=== PATIENT | female | born 1990 | race Caucasian/White ===

== ENCOUNTER 2020-07-29 13:58 | Emergency (ER) | payer OTHER, SELFPAY ==
[~2020-07-29] VITALS: Ht 157.5 cm; Wt 40.8 kg
[~2020-07-29 13:58] MED LIST: PREN-385 PO
[2020-07-29 14:05] VITALS: BP 94/32
[2020-07-29 14:28] LABS: BASOPHILS % (AUTO) 1.1 % (0.0-2.0); EOSINOPHILS % (AUTO) 0.2 % (0.0-4.0); HEMATOCRIT 37.6 % (36-48); HEMOGLOBIN 12.2 g/dL (12.0-16.0); LYMPHOCYTES # (AUTO) 0.7 K/uL (2.5-16.5); LYMPHOCYTES % (AUTO) 16.5 % (20.5-51.1); MEAN CORPUSCULAR HEMOGLOBIN 24 pg (27-31); MEAN CORPUSCULAR HGB CONC 33 g/dL (33-37); MEAN CORPUSCULAR VOLUME 73.7 fL (80-94); MONOCYTES # (AUTO) 0.2 K/uL (0.8-1.0); MONOCYTES % (AUTO) 5.4 % (1.7-9.3); NEUTROPHILS # (AUTO) 3.5 K/uL (1.8-7.7); NEUTROPHILS % (AUTO) 76.8 % (42.2-75.2); PLATELET COUNT (AUTO) 366 K/uL (140-450); RED CELL DISTRIBUTION WIDTH 17.4 % (11.6-13.7); WHITE BLOOD COUNT (AUTO) 4.5 K/uL (4.8-10.8)
[2020-07-29] MEDS: MORPHINE SULFATE 4 MG/ML SYR IVP ONE ×2 (14:34→15:53)
[2020-07-29] MEDS: NACL 0.9% 1,000 ML IV ONE (14:34)
[2020-07-29] MEDS: ONDANSETRON 4 MG/2 ML VIAL IVP ONE (14:34)
[2020-07-29 14:42] LABS: ALBUMIN 4.8 g/dL (3.4-5.0); ANION GAP 28.5 (8-16); CARBON DIOXIDE 14.7 mmol/L (21-32); CREATININE 0.6 mg/dL (0.6-1.3); POTASSIUM 3.2 mmol/L (3.5-5.1); TOTAL BILIRUBIN 1.1 mg/dL (0.0-1.0)
[2020-07-29 16:28] VITALS: BP 131/85
== END 2020-07-29 16:28 | disposition home or self-care (01) ==
LOC: MED 13:58
DX: R10.9 Unspecified abdominal pain (principal); R11.2 Nausea with vomiting, unspecified; Z91.012 Allergy to eggs; Z90.49 Acquired absence of other specified parts of digestive tract; Z98.890 Other specified postprocedural states; Z79.899 Other long term (current) drug therapy
CPT/HCPCS: 36415; 74176; 80053; 81002; 81025; 83690; 85025; 96361; 96374; 96375; 96376; 99284; J2270; J2405; J7030

== ENCOUNTER 2020-07-30 05:54 | Day surgery (SDC) | payer OTHER, SELFPAY ==
[~2020-07-30] VITALS: Ht 149.9 cm; Wt 40.4 kg
[2020-07-30] MEDS ORDERED: fentaNYL citrate 0.05 MG/ML VIAL ONE (07:22)
[2020-07-30] MEDS ORDERED: MIDAZOLAM 2 MG/2 ML VIAL ONE (07:22)
[2020-07-30] MEDS ORDERED: MIDAZOLAM 5 MG/5 ML VIAL ONE (07:22)
[2020-07-30] MEDS ORDERED: MIDAZOLAM 2 MG/2 ML VIAL IVP ONE (08:10)
[2020-07-30] MEDS ORDERED: MIDAZOLAM 5 MG/5 ML VIAL IV ONE (08:15)
== END 2020-07-30 08:40 | disposition home or self-care (01) ==
LOC: MOR 05:54 → MMU 05:56 → MOR 08:40
PROVIDERS: ATTEND Internal Medicine Gastroenterology
DX: R10.13 Epigastric pain (principal); R11.2 Nausea with vomiting, unspecified; Z20.828 Contact with and (suspected) exposure to other viral communicable diseases
CPT/HCPCS: 43235; 81025; J2250; J3010; U0003

== ENCOUNTER 2020-07-30 10:43 | Emergency (ER) | payer OTHER, SELFPAY ==
[~2020-07-30] VITALS: Ht 149.9 cm; Wt 40.4 kg
[2020-07-30 10:45] VITALS: BP 146/118
--- NOTE | 2020-07-30 10:52 | NUR ---
Patient transferred to bed 2 via wheelchair by triage nurse.
[2020-07-30] MEDS ORDERED: DEXT 5% / NACL 0.9% 500 ML IV ONE (11:00)
[2020-07-30] MEDS ORDERED: NACL 0.9% 1,000 ML IV ONE (11:00)
--- NOTE | 2020-07-30 11:00 | NUR ---
29 YEAR OLD FEMALE COMPLAINS OF LOWER ABDOMINAL PAIN X 1 MONTH, PT STATES IT HAS BEEN WORSE THESE PAST 3 DAYS. PT COMPLAINS OF NAUSEA, VOMITTING X 2 DAYS BUT CURRENTLY WITHOUT NAUSEA. PT STATES SHE HAD AN EGD DONE TODAY BUT DOES NOT REMEMBER EVENT. PT AOX4, BREATHING EVEN AND UNLABORED, SKIN WARM AND DRY. BED IN LOWEST POSITION, LOCKED, BED RAIL UPX1. PMH - DENIES ALLERGIES - NKA
[2020-07-30 11:24] LABS: BASOPHILS # (AUTO) 0.1 K/uL (0.00-0.22); BASOPHILS % (AUTO) 1.4 % (0.0-2.0); EOSINOPHILS % (AUTO) 0.1 % (0.0-4.0); HEMOGLOBIN 12.8 g/dL (12.0-16.0); LYMPHOCYTES # (AUTO) 0.7 K/uL (2.5-16.5); LYMPHOCYTES % (AUTO) 17.2 % (20.5-51.1); MEAN CORPUSCULAR HEMOGLOBIN 24 pg (27-31); MEAN CORPUSCULAR HGB CONC 33 g/dL (33-37); MEAN CORPUSCULAR VOLUME 74.4 fL (80-94); MONOCYTES # (AUTO) 0.1 K/uL (0.8-1.0); NEUTROPHILS # (AUTO) 3.4 K/uL (1.8-7.7); NEUTROPHILS % (AUTO) 78.3 % (42.2-75.2); PLATELET COUNT (AUTO) 351 K/uL (140-450); RED BLOOD CELL COUNT(AUTO) 5.25 MIL/uL (4.20-5.40); RED CELL DISTRIBUTION WIDTH 17.3 % (11.6-13.7); WHITE BLOOD COUNT (AUTO) 4.3 K/uL (4.8-10.8)
[2020-07-30] MEDS ORDERED: HALOPERIDOL IM 5 MG/ML VIAL IM ONE (11:25)
[2020-07-30 11:47] LABS: SALICYLATE < 2.8 mg/dL (2.8-20.0)
[2020-07-30 11:51] LABS: BILIRUBIN,DIRECT 0.2 mg/dL (0.0-0.3); TOTAL BILIRUBIN 0.9 mg/dL (0.0-1.0)
[2020-07-30 11:57] LABS: ANION GAP 26.3 (8-16); CREATININE 0.6 mg/dL (0.6-1.3); POTASSIUM 3.3 mmol/L (3.5-5.1)
[2020-07-30 12:05] LABS: APPEARANCE,URINE CLEAR (CLEAR); BILIRUBIN,URINE NEGATIVE (NEGATIVE); BLOOD, URINE NEGATIVE (NEGATIVE); COLOR,URINE YELLOW (YELLOW); LEUKOCYTE ESTERASE ,URINE NEGATIVE (NEGATIVE); NITRITE, URINE NEGATIVE (NEGATIVE); UGLUCOSE NEGATIVE (NEGATIVE)
--- NOTE | 2020-07-30 12:30 | NUR ---
Patient returned from CT scan and placed back into bed 2.
--- NOTE | 2020-07-30 12:31 | NUR ---
Patient returned from CT scan.
[2020-07-30 12:33] LABS: BARBITURATE, URINE NEGATIVE ng/ml (NEG <=200); BENZODIAZEPINE, URINE NEGATIVE ng/mL (NEG <=200); CANNABINOID, URINE POSITIVE ng/mL (NEG <=50); COCAINE, URINE NEGATIVE ng/mL (NEG <=300); OPIATE, URINE POSITIVE ng/mL (NEG <=2000); PHENCYCLIDINE SCREEN,URINE NEGATIVE ng/mL (NEG <=25)
--- NOTE | 2020-07-30 12:45 | NUR ---
PT ALERT AND AWAKE, BREATHING EVEN AND UNLABORED. NO DISTRESS NOTED.
--- NOTE | 2020-07-30 13:56 | NUR ---
PT ALERT AND AWAKE, BREATHING EVEN AND UNLABORED. NO DISTRESS NOTED. PT STATES FEELS BETTER
--- NOTE | 2020-07-30 14:55 | NUR ---
Patient discharged with v/s stable. Written and verbal after care instructions about abdominal pain (nonspecific) given and explained. Patient alert, oriented and verbalized understanding of instructions. Ambulatory with steady gait. All questions addressed prior to discharge. ID band removed. Patient advised to follow up with PMD. Rx of zofran given. Patient educated on indication of medication including possible reaction and side effects. Opportunity to ask questions provided and answered.
[2020-07-30 15:11] VITALS: BP 102/63
== END 2020-07-30 14:55 | disposition home or self-care (01) ==
LOC: MED 10:43
DX: R10.9 Unspecified abdominal pain (principal); E86.0 Dehydration; R11.2 Nausea with vomiting, unspecified; Z79.899 Other long term (current) drug therapy
CPT/HCPCS: 36415; 74177; 80048; 80076; 80305; 81003; 81025; 83605; 83690; 85025; 96365; 96366; 96372; 99285; G0480; G0482; J1630; Q9967; J7030; J7060

== ENCOUNTER 2020-08-06 12:43 | Emergency (ER) | payer OTHER ==
[~2020-08-06] VITALS: Ht 149.9 cm; Wt 42.9 kg
[2020-08-06 12:58] VITALS: BP 102/47
--- NOTE | 2020-08-06 12:58 | NUR ---
Pt taken to bed 6 via w/c.
--- NOTE | 2020-08-06 13:10 | NUR ---
PATIENT PRESENTS TO ED WITH C/O ABDOMINAL PAIN . SKIN IS PINK/WARM/DRY; AAOX4 WITH EVEN AND STEADY GAIT; LUNGS CLEAR BL; HR EVEN AND REGULAR; PT DENIES ANY FEVER, CP, SOB, OR COUGH AT THIS TIME; PATIENT STATES PAIN OF 0/10 AT THIS TIME; VSS; PATIENT POSITIONED FOR COMFORT; HOB ELEVATED; BEDRAILS UP X2; BED DOWN. ER MD MADE AWARE OF PT STATUS.
--- NOTE | 2020-08-06 13:58 | NUR ---
Patient being evaluated by Dr. Loera at bedside.
[2020-08-06] MEDS ORDERED: SIMETHICONE 40 MG/0.6 ML PO ONE (14:15)
[2020-08-06] MEDS ORDERED: ONDANSETRON 4 MG ODT PO ONE (14:15)
[2020-08-06] MEDS ORDERED: DICYCLOMINE 10 MG CAP PO STA (14:15)
--- NOTE | 2020-08-06 14:30 | NUR ---
pt meds given per md orders
[2020-08-06 15:47] VITALS: BP 102/47
--- NOTE | 2020-08-06 15:47 | NUR ---
Patient discharged with v/s stable. Written and verbal after care instructions given and explained. Patient alert, oriented and verbalized understanding of instructions. Ambulatory with steady gait. All questions addressed prior to discharge. ID band removed. Patient advised to follow up with PMD. Rx of DICYCLOMINE HYDROCHLORIDE given. Patient educated on indication of medication including possible reaction and side effects. Opportunity to ask questions provided and answered.
== END 2020-08-06 15:47 | disposition home or self-care (01) ==
LOC: MED 12:43
DX: R10.9 Unspecified abdominal pain (principal); Z79.899 Other long term (current) drug therapy; Z90.49 Acquired absence of other specified parts of digestive tract
CPT/HCPCS: 99284; Q0162

== ENCOUNTER 2020-10-27 04:55 | Emergency (ER) | payer OTHER ==
[~2020-10-27] VITALS: Ht 149.9 cm; Wt 43.5 kg
[2020-10-27 05:04] VITALS: BP 123/88
[2020-10-27 06:10] VITALS: BP 125/74
== END 2020-10-27 06:10 | disposition home or self-care (01) ==
LOC: MED 04:55
DX: R10.9 Unspecified abdominal pain (principal); R11.2 Nausea with vomiting, unspecified; Z90.49 Acquired absence of other specified parts of digestive tract; Z79.899 Other long term (current) drug therapy
CPT/HCPCS: 99282

== ENCOUNTER 2020-10-27 20:30 | Emergency (ER) | payer OTHER ==
[~2020-10-27] VITALS: Ht 149.9 cm; Wt 43.5 kg
[2020-10-27 20:53] VITALS: BP 147/95
--- NOTE | 2020-10-27 20:56 | NUR ---
PATIENT EVALUATED IN TRIAGE BY ERMD.
--- NOTE | 2020-10-27 20:59 | NUR ---
PT TAKEN TO BED 6
[2020-10-27] MEDS ORDERED: NACL 0.9% 1,000 ML IV ONE (21:00)
[2020-10-27] MEDS ORDERED: PROMETHAZINE 25 MG/ML VIAL IM ONE (21:00)
[2020-10-27] MEDS ORDERED: LIDOCAINE VISCOUS 2% 20 ML UDC PO ONE (21:00)
[2020-10-27] MEDS ORDERED: DICYCLOMINE 10 MG CAP PO ONE (21:00)
[2020-10-27] MEDS ORDERED: HALOPERIDOL IM 5 MG/ML VIAL IM ONE (21:00)
--- NOTE | 2020-10-27 21:20 | NUR ---
IV ESTABLISHED, LABS DRAWN AND GIVEN TO URBAN PLANNER
[2020-10-27 21:51] LABS: BASOPHILS # (AUTO) 0.1 K/uL (0.00-0.22); EOSINOPHILS % (AUTO) 0.4 % (0.0-4.0); HEMATOCRIT 33.4 % (36-48); HEMOGLOBIN 10.6 g/dL (12.0-16.0); LYMPHOCYTES # (AUTO) 1.4 K/uL (2.5-16.5); LYMPHOCYTES % (AUTO) 17.9 % (20.5-51.1); MEAN CORPUSCULAR HEMOGLOBIN 22 pg (27-31); MEAN CORPUSCULAR HGB CONC 32 g/dL (33-37); MEAN CORPUSCULAR VOLUME 69.1 fL (80-94); MONOCYTES # (AUTO) 0.7 K/uL (0.8-1.0); MONOCYTES % (AUTO) 9.1 % (1.7-9.3); NEUTROPHILS # (AUTO) 5.5 K/uL (1.8-7.7); NEUTROPHILS % (AUTO) 71.6 % (42.2-75.2); PLATELET COUNT (AUTO) 310 K/uL (140-450); RED BLOOD CELL COUNT(AUTO) 4.83 MIL/uL (4.20-5.40); WHITE BLOOD COUNT (AUTO) 7.7 K/uL (4.8-10.8)
[2020-10-27 22:04] LABS: ALBUMIN 4.7 g/dL (3.4-5.0); ANION GAP 17.2 (8-16); CARBON DIOXIDE 21.8 mmol/L (21-32); CREATININE 0.6 mg/dL (0.6-1.3); TOTAL BILIRUBIN 1.4 mg/dL (0.0-1.0)
--- NOTE | 2020-10-27 22:05 | NUR ---
PT COMING IN TONIGHT WITH C/O DIFFUSE ABD PAIN WITH N/V/D X 2 DAYS, PT WAS SEEN EARLIER TODAY AND YESTERDAY AT [facility] FOR SAY ISSUE. PT STATES NOTHING IS HELPING HER. PT IS MOANING LOUDLY AND GRABBING HER ABD. PT SAYS SHE HASN'T BEEN ABLE TO EAT X 2-3 DAYS. ABD TENDER UPON PALPATION, AND PT CRIES OUT WITH PALPATION. BED IN LOWEST POSITION AND SIDERAIL UP X 1. NKA HX - CHRONIC ABD PAIN
--- NOTE | 2020-10-27 22:07 | NUR ---
PT ADVISED WE NEED A URINE SAMPLE.
--- NOTE | 2020-10-27 22:19 | NUR ---
PT WAS SLEEPING UPON ENTERING HER ROOM, ASKED IF I COULD ASSIT HER TO RESTROOM FOR UA, STATES SHE STILL DOESN'T NEED TO GO. PT STATES PAIN IS 1/10 NOW. WILL CONTINUE TO MONITOR
--- NOTE | 2020-10-27 23:00 | NUR ---
PT SLEEPING, RESPIRATIONS REGULAR EVEN AND UNLABORED. WILL CONTINUE TO MONITOR
[2020-10-27 23:41] VITALS: BP 130/91
--- NOTE | 2020-10-27 23:42 | NUR ---
PT WAS NEVER ABLE TO PROVISE UA PRIOR TO D/C
--- NOTE | 2020-10-27 23:42 | NUR ---
Patient discharged with v/s stable. Written and verbal after care instructions given and explained. Patient alert, oriented and verbalized understanding of instructions. Ambulatory with steady gait. All questions addressed prior to discharge. ID band removed. Patient advised to follow up with PMD. Rx of ZOFRAN AND PEPCID given. Patient educated on indication of medication including possible reaction and side effects. Opportunity to ask questions provided and answered.
== END 2020-10-27 23:42 | disposition home or self-care (01) ==
LOC: MED 20:30
DX: R10.9 Unspecified abdominal pain (principal); G89.29 Other chronic pain; R11.2 Nausea with vomiting, unspecified; Z90.49 Acquired absence of other specified parts of digestive tract; Z79.899 Other long term (current) drug therapy
CPT/HCPCS: 36415; 80053; 83690; 85025; 96360; 96361; 96372; 99284; J1630; J2550; J7030

== ENCOUNTER 2020-11-10 11:50 | Emergency (ER) | payer OTHER ==
[~2020-11-10] VITALS: Ht 149.9 cm; Wt 43.5 kg
--- NOTE | 2020-11-10 11:55 | NUR ---
Patient wheelchair assisted to bed 09
[2020-11-10 11:58] VITALS: BP 133/77
[2020-11-10] MEDS ORDERED: HALOPERIDOL IM 5 MG/ML VIAL IVP ONE (12:10)
[2020-11-10] MEDS ORDERED: NACL 0.9% 1,000 ML IV ONE (12:10)
[2020-11-10 12:30] LABS: BASOPHILS % (AUTO) 0.4 % (0.0-2.0); EOSINOPHILS % (AUTO) 0.6 % (0.0-4.0); HEMATOCRIT 31.5 % (36-48); LYMPHOCYTES # (AUTO) 0.8 K/uL (2.5-16.5); LYMPHOCYTES % (AUTO) 14.6 % (20.5-51.1); MEAN CORPUSCULAR HEMOGLOBIN 22 pg (27-31); MEAN CORPUSCULAR HGB CONC 32 g/dL (33-37); MEAN CORPUSCULAR VOLUME 69.1 fL (80-94); MONOCYTES # (AUTO) 0.3 K/uL (0.8-1.0); MONOCYTES % (AUTO) 5.3 % (1.7-9.3); NEUTROPHILS # (AUTO) 4.5 K/uL (1.8-7.7); NEUTROPHILS % (AUTO) 79.1 % (42.2-75.2); PLATELET COUNT (AUTO) 373 K/uL (140-450); RED BLOOD CELL COUNT(AUTO) 4.56 MIL/uL (4.20-5.40); RED CELL DISTRIBUTION WIDTH 17.7 % (11.6-13.7); WHITE BLOOD COUNT (AUTO) 5.7 K/uL (4.8-10.8)
[2020-11-10 12:33] LABS: BILIRUBIN,URINE NEGATIVE (NEGATIVE); BLOOD, URINE NEGATIVE (NEGATIVE); COLOR,URINE YELLOW (YELLOW); LEUKOCYTE ESTERASE ,URINE NEGATIVE (NEGATIVE); NITRITE, URINE NEGATIVE (NEGATIVE); PH,URINE 7.5 (5.0-9.0); UGLUCOSE NEGATIVE (NEGATIVE)
[2020-11-10 12:48] LABS: BARBITURATE, URINE NEGATIVE ng/ml (NEG <=200); BENZODIAZEPINE, URINE NEGATIVE ng/mL (NEG <=200); CANNABINOID, URINE POSITIVE ng/mL (NEG <=50); COCAINE, URINE NEGATIVE ng/mL (NEG <=300); OPIATE, URINE NEGATIVE ng/mL (NEG <=2000); PHENCYCLIDINE SCREEN,URINE NEGATIVE ng/mL (NEG <=25)
[2020-11-10 12:50] LABS: ALBUMIN 4.5 g/dL (3.4-5.0); BILIRUBIN,DIRECT 0.1 mg/dL (0.0-0.3); TOTAL BILIRUBIN 0.7 mg/dL (0.0-1.0)
[2020-11-10 13:00] LABS: APPEARANCE,URINE CLEAR (CLEAR)
[2020-11-10 13:07] LABS: RBC,URINE 0-5 /HPF (0-5); WBC,URINE 0-5 /HPF (0-5)
[2020-11-10 13:32] VITALS: BP 113/77
--- NOTE | 2020-11-10 13:33 | NUR ---
Patient does not wish to proceed with medical care recommended by DR MIKE. Patient given information related to possible complications, up to and including , which could occur as a result of leaving hospital at this time. Patient verbalizes understanding of risks involved leaving against medical advice. Patient has signed AMA form.
[2020-11-10 13:35] LABS: ANION GAP 17.6 (8-16); CARBON DIOXIDE 19.8 mmol/L (21-32); CREATININE 0.7 mg/dL (0.6-1.3); POTASSIUM 3.4 mmol/L (3.5-5.1)
--- NOTE | 2020-11-11 20:48 | NUR ---
LATE ENTRY--- 0.9% NS BOLUS DISCONTINUED AT 1330
== END 2020-11-10 13:27 | disposition left against medical advice (07) ==
LOC: MED 11:50
DX: R10.84 Generalized abdominal pain (principal); R11.2 Nausea with vomiting, unspecified; F12.20 Cannabis dependence, uncomplicated; F12.90 Cannabis use, unspecified, uncomplicated
CPT/HCPCS: 36415; 80048; 80076; 80305; 81001; 81025; 83690; 85025; 96360; 96372; 99283; J1630; J7030

== ENCOUNTER 2020-11-15 15:52 | Emergency (ER) | payer OTHER ==
[~2020-11-15] VITALS: Ht 149.9 cm; Wt 44.0 kg
[2020-11-15 15:53] VITALS: BP 125/76
[2020-11-15] MEDS ORDERED: DICYCLOMINE HCL LIQUID 20 MG, ALUMINUM HYD/MAG/SIMETHICONE 30 ML, LIDOCAINE VISCOUS 2% ... PO ONE ×3 (16:10)
[2020-11-15] MEDS ORDERED: diphenhydrAMINE 50 MG/ML VIAL IVP STA (16:10)
[2020-11-15] MEDS ORDERED: HALOPERIDOL IM 5 MG/ML VIAL IM ONE (16:10)
--- NOTE | 2020-11-15 16:11 | NUR ---
30 YEAR OLD FEMALE COMPLAINS OF ABDOMINAL PAIN X THIS MORNING. PER PATIENT, SHE FELT PAIN DEVELOP AFTER CONSUMING CEVICHE FROM [facility] (HAS PREVIOUSLY ORDERED CEVICHE FROM THIS SAME RESTAURANT; NO ISSUES). PAIN 10/10, CONTINUOUS, DULL, LOCAL. PATIENT VOMITING AT BEDSIDE, CLEAR WASTE IN EMESIS BAG. PATIENT VERBALIZES PRESENCE OF NAUSEA. DENIES DIARRHEA. NORMOACTIVE BOWEL SOUNDS PRESENT THROUGHOUT. ABDOMINAL TENDERNESS NOTED UPON TOUCH. AO4, SKIN WARM AND DRY, BREATHING EVEN AND UNLABORED. BED IN LOWEST POSITION, LOCKED, X2 SIDERAILS UP. PMH - 2 C-SECTIONS, CHOLECYSTECTOMY NKA
[2020-11-15] MEDS ORDERED: LIDOCAINE VISCOUS 2% 20 ML UDC ONE (16:14)
[2020-11-15] MEDS ORDERED: ALUMINUM HYD/MAG/SIMETHICONE 30 ML UDC ONE (16:15)
[2020-11-15] MEDS ORDERED: DICYCLOMINE HCL LIQUID 10 MG/5 ML UDC ONE (16:15)
[2020-11-15 16:23] LABS: BASOPHILS # (AUTO) 0.1 K/uL (0.00-0.22); BASOPHILS % (AUTO) 0.5 % (0.0-2.0); EOSINOPHILS % (AUTO) 0.2 % (0.0-4.0); HEMATOCRIT 35.9 % (36-48); HEMOGLOBIN 11.3 g/dL (12.0-16.0); LYMPHOCYTES # (AUTO) 1.4 K/uL (2.5-16.5); LYMPHOCYTES % (AUTO) 12.4 % (20.5-51.1); MEAN CORPUSCULAR HEMOGLOBIN 21 pg (27-31); MEAN CORPUSCULAR HGB CONC 31 g/dL (33-37); MEAN CORPUSCULAR VOLUME 68.2 fL (80-94); MONOCYTES # (AUTO) 0.5 K/uL (0.8-1.0); MONOCYTES % (AUTO) 4.3 % (1.7-9.3); NEUTROPHILS # (AUTO) 9.3 K/uL (1.8-7.7); NEUTROPHILS % (AUTO) 82.6 % (42.2-75.2); PLATELET COUNT (AUTO) 464 K/uL (140-450); RED BLOOD CELL COUNT(AUTO) 5.27 MIL/uL (4.20-5.40); WHITE BLOOD COUNT (AUTO) 11.3 K/uL (4.8-10.8)
--- NOTE | 2020-11-15 16:30 | NUR ---
PT CALM, IN BED. NO DISTRESS NOTED.
[2020-11-15 16:40] LABS: ANION GAP 19.3 (8-16); CARBON DIOXIDE 20.5 mmol/L (21-32); CREATININE 0.8 mg/dL (0.6-1.3); POTASSIUM 3.8 mmol/L (3.5-5.1); TOTAL BILIRUBIN 0.9 mg/dL (0.0-1.0)
--- NOTE | 2020-11-15 17:03 | NUR ---
Dr Solis at bedside examining patient
--- NOTE | 2020-11-15 17:20 | NUR ---
PT CALM, IN BED. NO DISTRESS NOTED.
[2020-11-15 17:25] VITALS: BP 125/76
--- NOTE | 2020-11-15 17:25 | NUR ---
Patient discharged with v/s stable. Written and verbal after care instructions ABOUT NAUSEA AND VOMITING given and explained. Patient alert, oriented and verbalized understanding of instructions. Ambulatory with steady gait. All questions addressed prior to discharge. ID band removed. Patient advised to follow up with PMD. Rx of REGLAN AND CAPSAICIN given. Patient educated on indication of medication including possible reaction and side effects. Opportunity to ask questions provided and answered.
== END 2020-11-15 17:25 | disposition home or self-care (01) ==
LOC: MED 15:52
DX: R11.10 Vomiting, unspecified (principal); G89.29 Other chronic pain; R10.9 Unspecified abdominal pain; Z90.49 Acquired absence of other specified parts of digestive tract
CPT/HCPCS: 36415; 80053; 83690; 84702; 85025; 96374; 96375; 99284; J1200; J1630

== ENCOUNTER 2020-11-15 23:00 | Emergency (ER) | payer OTHER ==
[~2020-11-15] VITALS: Ht 149.9 cm; Wt 44.0 kg
[2020-11-15 23:14] VITALS: BP 134/88
--- NOTE | 2020-11-15 23:28 | NUR ---
PT TAKEN TO BED 4
--- NOTE | 2020-11-15 23:32 | NUR ---
Dr. Browne examining patient.
--- NOTE | 2020-11-15 23:32 | NUR ---
Miguel lovett in [facility] - 11/15/20 at [address]
[2020-11-15] MEDS ORDERED: PROMETHAZINE 25 MG/ML VIAL IM ONE (23:35)
[2020-11-15] MEDS ORDERED: HALOPERIDOL IM 5 MG/ML VIAL IM ONE (23:35)
[2020-11-15] MEDS ORDERED: ONDANSETRON 4 MG ODT PO ONE (23:35)
[2020-11-16 01:48] VITALS: BP 134/83
--- NOTE | 2020-11-16 01:49 | NUR ---
Patient discharged with v/s stable. Written and verbal after care instructions given and explained. Patient alert, oriented and verbalized understanding of instructions. Ambulatory with steady gait. All questions addressed prior to discharge. ID band removed. Patient advised to follow up with PMD. Rx of CAPSAICIN CREAM AND PHENERGAN SUPPOSITORY given. Patient educated on indication of medication including possible reaction and side effects. Opportunity to ask questions provided and answered.
== END 2020-11-16 01:49 | disposition home or self-care (01) ==
LOC: MED 23:00
DX: G89.29 Other chronic pain (principal); R10.9 Unspecified abdominal pain; R11.15 Cyclical vomiting syndrome unrelated to migraine
CPT/HCPCS: 96372; 99284; J1630; J2550; Q0162

== ENCOUNTER 2020-11-24 18:43 | Emergency (ER) | payer OTHER ==
[~2020-11-24] VITALS: Ht 149.9 cm; Wt 44.0 kg
[2020-11-24] MEDS ORDERED: ONDANSETRON 4 MG ODT PO ONE (19:00)
[2020-11-24 19:02] VITALS: BP 132/89
--- NOTE | 2020-11-24 19:04 | NUR ---
PT CAME IN FOR ABD PAIN THAT STARTS IN LRQ, DOES NOT RADIATE 07/10, STARTED YESTERDAY 11/23/20, N&X STARTED THIS MORNING. 6 EMESIS EPISODES, NO BLOOD. NO CONSTIPATION, NO DIARRHEA. LAST BM: 11/23/20. LMP: 10/28/20. PMH: CHS, GALLSTONES 2019. LAST MEAL: 11/23/20, HAS NOT BEEN ABLE TO HOLD FOOD DOWN. PUT ORDER FOR ZOFRAN 4MG ODT.
--- NOTE | 2020-11-24 19:23 | NUR ---
Report given to NICK Katz, who assumed care for patient.
--- NOTE | 2020-11-24 19:35 | NUR ---
Dr. Maza examining patient.
[2020-11-24] MEDS ORDERED: ONDANSETRON 4 MG/2 ML VIAL IVP ONE (20:05)
[2020-11-24] MEDS ORDERED: diphenhydrAMINE 50 MG/ML VIAL IVP ONE (20:05)
[2020-11-24] MEDS ORDERED: NACL 0.9% 1,000 ML IV ONE (20:05)
[2020-11-24] MEDS ORDERED: MORPHINE SULFATE 2 MG/ML SYR IVP ONE (20:05)
[2020-11-24] MEDS ORDERED: KETOROLAC 30 MG/ML VIAL IVP ONE (20:15)
--- NOTE | 2020-11-24 20:24 | NUR ---
Patient does not wish to proceed with medical care recommended by DR MEJÍA. Patient given information related to possible complications, up to and including , which could occur as a result of leaving hospital at this time. Patient verbalizes understanding of risks involved leaving against medical advice. Patient has signed AMA form.
== END 2020-11-24 20:24 | disposition left against medical advice (07) ==
LOC: MED 18:43
DX: R11.2 Nausea with vomiting, unspecified (principal); R10.30 Lower abdominal pain, unspecified; Z90.49 Acquired absence of other specified parts of digestive tract; Z87.19 Personal history of other diseases of the digestive system
CPT/HCPCS: 99283; Q0162

== ENCOUNTER 2021-02-20 10:04 | Emergency (ER) | payer OTHER ==
[~2021-02-20] VITALS: Ht 149.9 cm; Wt 44.0 kg
--- NOTE | 2021-02-20 10:14 | NUR ---
Patient ambulated to bed 4. RN evaluating the patient at bedside.
--- NOTE | 2021-02-20 10:23 | NUR ---
C/O ABDOMINAL PAIN, N/V X 4 DAYS. PMH: GALL BLADDER REMOVAL
[2021-02-20] MEDS: ACETAMINOPHEN 325 MG TAB PO ONE (10:29)
[2021-02-20] MEDS: ONDANSETRON 4 MG ODT PO ONE (10:29)
[2021-02-20 10:33] LABS: HEMOGLOBIN 9.1 g/dL (12.0-16.0); MONOCYTES # (AUTO) 0.4 K/uL (0.8-1.0); NEUTROPHILS # (AUTO) 2.8 K/uL (1.8-7.7); WHITE BLOOD COUNT (AUTO) 4.7 K/uL (4.8-10.8)
[2021-02-20 10:38] LABS: BASOPHILS % (AUTO) 0.8 % (0.0-2.0); EOSINOPHILS % (AUTO) 0.7 % (0.0-4.0); HEMATOCRIT 29.2 % (36-48); LYMPHOCYTES # (AUTO) 1.5 K/uL (2.5-16.5); LYMPHOCYTES % (AUTO) 30.7 % (20.5-51.1); MEAN CORPUSCULAR HEMOGLOBIN 20 pg (27-31); MEAN CORPUSCULAR HGB CONC 31 g/dL (33-37); MONOCYTES % (AUTO) 9.1 % (1.7-9.3); NEUTROPHILS % (AUTO) 58.7 % (42.2-75.2); PLATELET COUNT (AUTO) 454 K/uL (140-450)
[2021-02-20 10:42] LABS: APPEARANCE,URINE CLEAR (CLEAR); BILIRUBIN,URINE NEGATIVE (NEGATIVE); BLOOD, URINE NEGATIVE (NEGATIVE); COLOR,URINE YELLOW (YELLOW); LEUKOCYTE ESTERASE ,URINE NEGATIVE (NEGATIVE); NITRITE, URINE NEGATIVE (NEGATIVE); UGLUCOSE NEGATIVE (NEGATIVE)
[2021-02-20 10:47] LABS: ALBUMIN 4.6 g/dL (3.4-5.0); ANION GAP 16.2 (8-16); CREATININE 0.6 mg/dL (0.6-1.3); POTASSIUM 3.2 mmol/L (3.5-5.1)
[2021-02-20] MEDS ORDERED: ACET-1195 PO (11:14)
[2021-02-20] MEDS ORDERED: ONDA-24 PO (11:14)
[2021-02-20] MEDS: POTASSIUM CHLORIDE 10 MEQ TABER PO ONE (11:22)
--- NOTE | 2021-02-20 11:38 | NUR ---
Patient discharged with v/s stable. Written and verbal after care instructions given and explained. Patient alert, oriented and verbalized understanding of instructions. Ambulatory with steady gait. All questions addressed prior to discharge. ID band removed. Patient advised to follow up with PMD. Rx of ZOFRAN AND TYLENOL given. Patient educated on indication of medication including possible reaction and side effects. Opportunity to ask questions provided and answered.
== END 2021-02-20 11:38 | disposition home or self-care (01) ==
LOC: MED 10:04
DX: R10.33 Periumbilical pain (principal); R11.2 Nausea with vomiting, unspecified; E87.6 Hypokalemia; D50.9 Iron deficiency anemia, unspecified; D47.3 Essential (hemorrhagic) thrombocythemia; Z90.49 Acquired absence of other specified parts of digestive tract
CPT/HCPCS: 36415; 80053; 81003; 83690; 84702; 85025; 87086; 99284; Q0162

== ENCOUNTER 2021-03-27 05:39 | Emergency (ER) | payer OTHER ==
[~2021-03-27] VITALS: Ht 149.9 cm; Wt 40.8 kg
[~2021-03-27 05:39] MED LIST changes: +ACET-1195 PO; +ONDA-24 PO
[2021-03-27 05:42] VITALS: BP 136/100
--- NOTE | 2021-03-27 05:42 | NUR ---
TO BED AMBULATORY
--- NOTE | 2021-03-27 05:51 | NUR ---
30/F BIB SELF C/O ABDOMINAL PAIN, NAUSEA, VOMITING, DIARRHEA WHICH STARTED 3 DAYS AGO. PT DESCRIBES PAIN BURNING, NON-RADIATING, WITH A SCALE OF 10/10. PT DENIES ANY PAINFUL URINATION AT THIS TIME. DENIES PMH NKDA
--- NOTE | 2021-03-27 05:53 | NUR ---
Dr. Patton examining patient.
[2021-03-27] MEDS ORDERED: NACL 0.9% 1,000 ML IV ONE (05:55)
[2021-03-27] MEDS ORDERED: HALOPERIDOL IM 5 MG/ML VIAL IVP ONE (05:55)
[2021-03-27] MEDS ORDERED: diphenhydrAMINE 50 MG/ML VIAL IVP ONE (05:55)
[2021-03-27] MEDS ORDERED: FAMOTIDINE 20 MG/2 ML VIAL IVP ONE (05:55)
[2021-03-27 06:30] LABS: BASOPHILS % (AUTO) 0.7 % (0.0-2.0); EOSINOPHILS % (AUTO) 0.6 % (0.0-4.0); HEMATOCRIT 26.7 % (36-48); HEMOGLOBIN 8.6 g/dL (12.0-16.0); LYMPHOCYTES % (AUTO) 35.2 % (20.5-51.1); MEAN CORPUSCULAR HEMOGLOBIN 21 pg (27-31); MEAN CORPUSCULAR HGB CONC 32 g/dL (33-37); MEAN CORPUSCULAR VOLUME 65.5 fL (80-94); MONOCYTES # (AUTO) 0.6 K/uL (0.8-1.0); NEUTROPHILS % (AUTO) 52.5 % (42.2-75.2); PLATELET COUNT (AUTO) 323 K/uL (140-450); RED BLOOD CELL COUNT(AUTO) 4.08 MIL/uL (4.20-5.40); WHITE BLOOD COUNT (AUTO) 5.8 K/uL (4.8-10.8)
--- NOTE | 2021-03-27 06:37 | NUR ---
PT UNABLE TO PRODUCE URINE SAMPLE. STRAIGHT CATHETERIZATION PERFORMED BY CHRISTOPHER ROMERO. SAMPLE SENT TO LAB.
[2021-03-27 06:39] LABS: ANION GAP 17.9 (8-16); CARBON DIOXIDE 18.9 mmol/L (21-32); CREATININE 0.6 mg/dL (0.6-1.3); POTASSIUM 3.8 mmol/L (3.5-5.1)
[2021-03-27 06:45] LABS: ALBUMIN 3.7 g/dL (3.4-5.0); TOTAL BILIRUBIN 0.7 mg/dL (0.0-1.0)
[2021-03-27 07:10] LABS: CANNABINOID, URINE POSITIVE ng/mL (NEG <=50); OPIATE, URINE POSITIVE ng/mL (NEG <=2000); PHENCYCLIDINE SCREEN,URINE NEGATIVE ng/mL (NEG <=25)
[2021-03-27 07:11] LABS: BARBITURATE, URINE NEGATIVE ng/ml (NEG <=200); BENZODIAZEPINE, URINE NEGATIVE ng/mL (NEG <=200); COCAINE, URINE NEGATIVE ng/mL (NEG <=300)
--- NOTE | 2021-03-27 07:12 | NUR ---
ENDORSED TO ALEXX ROMERO FOR CONTINUITY OF CARE
--- NOTE | 2021-03-27 07:13 | NUR ---
Received report from NICK Santa. Transfer of care at this time.
[2021-03-27 07:31] VITALS: BP 136/100
--- NOTE | 2021-03-27 07:32 | NUR ---
Patient discharged with v/s stable. Written and verbal after care instructions given and explained. Patient verbalized understanding. Ambulatory with steady gait. All questions addressed prior to discharge. Advised to follow up with PMD.
== END 2021-03-27 07:32 | disposition home or self-care (01) ==
LOC: MED 05:39
DX: R11.15 Cyclical vomiting syndrome unrelated to migraine (principal); F12.90 Cannabis use, unspecified, uncomplicated; Z90.49 Acquired absence of other specified parts of digestive tract; Z79.899 Other long term (current) drug therapy
CPT/HCPCS: 36415; 80053; 80305; 83690; 84702; 85025; 96361; 96374; 96375; 99284; J1200; J1630; J3490; J7030

== ENCOUNTER 2021-05-20 20:06 | Emergency (ER) | payer OTHER, SELFPAY ==
--- NOTE | 2021-05-20 20:25 | NUR ---
PATIENT LEFT WITHOUT BEING SEEN BY DR. CHU. NO FURTHER CARE PROVIDED FOR PATIENT.
--- NOTE | 2021-05-20 20:25 | NUR ---
PATIENT CALLED TO TRIAGE, NO RESPONSE
--- NOTE | 2021-05-20 20:33 | NUR ---
CALLED FOR SECOND TIME , NO RESPONSE
--- NOTE | 2021-05-20 20:43 | NUR ---
PATIENT LEFT WITHOUT BEING SEEN BY DR. CHU. NO FURTHER CARE PROVIDED FOR PATIENT.
--- NOTE | 2021-05-20 20:43 | NUR ---
CALLED FOR THE THIRD TIME ,NO RESPONSE
== END 2021-05-20 20:25 | disposition left against medical advice (07) ==
LOC: MED 20:06
DX: R10.9 Unspecified abdominal pain (principal); Z53.21 Procedure and treatment not carried out due to patient leaving prior to being seen by health care provider

== ENCOUNTER 2021-05-21 15:00 | Emergency (ER) | payer OTHER, SELFPAY ==
[~2021-05-21] VITALS: Ht 149.9 cm; Wt 46.3 kg
[2021-05-21 15:28] VITALS: BP 135/86
--- NOTE | 2021-05-21 15:32 | NUR ---
PT TO LOBBY.
[2021-05-21 16:20] LABS: BASOPHILS % (AUTO) 0.4 % (0.0-2.0); HEMATOCRIT 33.5 % (36-48); HEMOGLOBIN 10.7 g/dL (12.0-16.0); LYMPHOCYTES # (AUTO) 1.6 K/uL (2.5-16.5); LYMPHOCYTES % (AUTO) 17.5 % (20.5-51.1); MEAN CORPUSCULAR HEMOGLOBIN 21 pg (27-31); MEAN CORPUSCULAR HGB CONC 32 g/dL (33-37); MONOCYTES # (AUTO) 0.7 K/uL (0.8-1.0); NEUTROPHILS # (AUTO) 6.7 K/uL (1.8-7.7); NEUTROPHILS % (AUTO) 74.1 % (42.2-75.2); PLATELET COUNT (AUTO) 397 K/uL (140-450); RED BLOOD CELL COUNT(AUTO) 5.15 MIL/uL (4.20-5.40); RED CELL DISTRIBUTION WIDTH 18.7 % (11.6-13.7)
--- NOTE | 2021-05-21 16:30 | NUR ---
DR. CHAN WITH PT IN A FOR FURTHER EVALUATION.
[2021-05-21] MEDS ORDERED: ONDANSETRON 4 MG/2 ML VIAL IVP ONE (16:35)
[2021-05-21] MEDS ORDERED: KETOROLAC 15 MG/ML VIAL IVP ONE (16:35)
[2021-05-21] MEDS ORDERED: NACL 0.9% 1,000 ML IV ONE (16:35)
--- NOTE | 2021-05-21 16:41 | NUR ---
PT TAKEN TO BED 12.
--- NOTE | 2021-05-21 16:43 | NUR ---
Note undone in EDM - 05/21/21 at 1911 by [email or web address] 30 Y/O FEMALE C/O MID ABDOMINAL PAIN 0/10 DESCRIBES SHARP NON-RADIATING X4 DAYS. PT STAES +N/V, TODAY 7TIMES. DENIES DIARRHEA/FEVER/CHILLS. ABDOMEN IS SOFT, FLT, NON-TENDER BOWEL SOUNDS ACTIVE X4. LAST BM 820/21. DENIES [facility] NKA
--- NOTE | 2021-05-21 16:43 | NUR ---
30 Y/O FEMALE C/O MID ABDOMINAL PAIN 07/10 DESCRIBES SHARP NON-RADIATING X4 DAYS. PT STAES +N/V, TODAY 7TIMES. DENIES DIARRHEA/FEVER/CHILLS. ABDOMEN IS SOFT, FLT, NON-TENDER BOWEL SOUNDS ACTIVE X4. LAST BM 820/21. DENIES PMH NKA
[2021-05-21 16:45] LABS: ALBUMIN 4.6 g/dL (3.4-5.0); ANION GAP 17.7 (8-16); CREATININE 0.6 mg/dL (0.6-1.3); TOTAL BILIRUBIN 1.1 mg/dL (0.0-1.0)
[2021-05-21 16:55] LABS: POTASSIUM 2.7 mmol/L (3.5-5.1)
[2021-05-21] MEDS ORDERED: POTASSIUM CHLORIDE 10 MEQ TABER PO ONE ×2 (17:05→20:15)
[2021-05-21] MEDS ORDERED: KCL 20 MEQ/WATER INJ PREMIX 200 ML IV ONE ×2 (17:10→17:25)
--- NOTE | 2021-05-21 17:36 | NUR ---
PT TAKN TO CT VIA W/C.
--- NOTE | 2021-05-21 17:46 | NUR ---
PT TAKEN TO ER BED 12 VIA W/C.
--- NOTE | 2021-05-21 18:17 | NUR ---
PT RESTING IN BED, HOB ELEVATED FOR COMFORT, VSS, WILL CONTINUE TO MONITOR.
--- NOTE | 2021-05-21 19:15 | NUR ---
GAVE REPORT TO NICK WHITE. TRANSFER OF CARE AT THIS TIME.
[2021-05-21 19:19] LABS: APPEARANCE,URINE CLEAR (CLEAR); BILIRUBIN,URINE NEGATIVE (NEGATIVE); BLOOD, URINE 2+ (NEGATIVE); COLOR,URINE DARK YELLOW (YELLOW); LEUKOCYTE ESTERASE ,URINE NEGATIVE (NEGATIVE); NITRITE, URINE NEGATIVE (NEGATIVE); PH,URINE 6.5 (5.0-9.0); UGLUCOSE NEGATIVE (NEGATIVE)
--- NOTE | 2021-05-21 19:51 | NUR ---
AWAKE AND ALERT. "I'M HUNGRY" . SANDWICH AND CRACKERS GIVEN. K-RIDER CONTINUES, IS TOLERATING WELL
[2021-05-21 20:06] LABS: ANION GAP 22.8 (8-16); CARBON DIOXIDE 17.4 mmol/L (21-32); CREATININE 0.7 mg/dL (0.6-1.3); POTASSIUM 3.2 mmol/L (3.5-5.1)
[2021-05-21 20:25] LABS: WBC,URINE 0-5 /HPF (0-5); YEAST,URINE Moderate /HPF (None Seen)
--- NOTE | 2021-05-21 21:01 | NUR ---
SITTING UP IN BED, ROCKING BACK AND FORTH. "I WANT TO GO HOME, I WANT TO GO HOME". EDUCATION GIVEN RE: LOW K+, PT WISHES TO SIGN AMA
[2021-05-21 21:45] VITALS: BP 134/68
--- NOTE | 2021-05-21 21:45 | NUR ---
Patient does not wish to proceed with medical care recommended by DR. CHAN. Patient given information related to possible complications, up to and including , which could occur as a result of leaving hospital at this time. Patient verbalizes understanding of risks involved leaving against medical advice. Patient has signed AMA form.
[2021-05-22] MEDS ORDERED: ONDA-24 SL (20:27)
[2021-05-22] MEDS ORDERED: PROC-66 PO (20:27)
--- NOTE | 2021-05-24 23:09 | NUR ---
LATE ENTRY- POTASSIUM IVF DISCONTINUED AT 2129
== END 2021-05-21 21:45 | disposition left against medical advice (07) ==
LOC: MED 15:00
DX: R10.31 Right lower quadrant pain (principal); R10.32 Left lower quadrant pain; E87.6 Hypokalemia; R00.0 Tachycardia, unspecified; R11.2 Nausea with vomiting, unspecified; Z90.49 Acquired absence of other specified parts of digestive tract; Z98.890 Other specified postprocedural states
CPT/HCPCS: 36415; 74176; 80048; 80053; 81001; 81025; 83690; 85025; 93005; 96361; 96365; 96375; 99285; J1885; J2405; J3480; 96366

== ENCOUNTER 2021-05-22 11:25 | Emergency (ER) | payer OTHER ==
[~2021-05-22] VITALS: Ht 149.9 cm; Wt 44.5 kg
[2021-05-22 11:36] VITALS: BP 143/97
--- NOTE | 2021-05-22 11:42 | NUR ---
BIB FAMILY C/O N/V/D, 07/10 MID ABD PAIN X TODAY. SEEN HERE YESTERDAY SAME S/S & SIGNED AMA. PMH: CYCLIC VOMITING SYNDROME, CHOLECYSTECTOMY
--- NOTE | 2021-05-22 13:06 | NUR ---
PATIENT LEFT WITHOUT BEING SEEN BY DR. TEMPLETON. NO FURTHER CARE PROVIDED FOR PATIENT. CALL 3 TIME NO A/N IN ER [facility], 11:57,12:00,13:08
[2021-05-22] MEDS ORDERED: ONDA-24 SL (20:27)
[2021-05-22] MEDS ORDERED: PROC-66 PO (20:27)
== END 2021-05-22 11:57 | disposition left against medical advice (07) ==
LOC: MED 11:25
DX: R10.9 Unspecified abdominal pain (principal); Z53.21 Procedure and treatment not carried out due to patient leaving prior to being seen by health care provider

== ENCOUNTER 2021-05-22 16:18 | Emergency (ER) | payer OTHER ==
[~2021-05-22] VITALS: Ht 149.9 cm; Wt 44.5 kg
[2021-05-22 16:29] VITALS: BP 114/88
--- NOTE | 2021-05-22 17:14 | NUR ---
PATIENT AMBULATED TO BED 4.
--- NOTE | 2021-05-22 17:18 | NUR ---
Pt ambulated from bed 04 to bed 01.
--- NOTE | 2021-05-22 17:39 | NUR ---
30 YEAR OLD FEMALE COMPLAINS OF ABDOMINAL PAIN, NAUSEA, VOMITTING, DIARRHEA X 5 DAYS. PT DENIES BLOOD IN VOMIT/DIARRHEA. PT DENIES PROBLEMS WITH URINATION. PT ALERT AND AWAKE, BREATHING EVEN AND UNLABORED, SKIN WARM AND DRY. BED IN LOWEST POSITION, LOCKED, BED RAIL UPX1. PMH - DENIES ALLERGIES - NKA
[2021-05-22 17:52] LABS: BASOPHILS # (AUTO) 0.1 K/uL (0.00-0.22); BASOPHILS % (AUTO) 0.7 % (0.0-2.0); EOSINOPHILS % (AUTO) 0.4 % (0.0-4.0); HEMATOCRIT 30.5 % (36-48); HEMOGLOBIN 9.8 g/dL (12.0-16.0); LYMPHOCYTES # (AUTO) 1.9 K/uL (2.5-16.5); LYMPHOCYTES % (AUTO) 25.4 % (20.5-51.1); MEAN CORPUSCULAR HEMOGLOBIN 21 pg (27-31); MEAN CORPUSCULAR HGB CONC 32 g/dL (33-37); MEAN CORPUSCULAR VOLUME 65.6 fL (80-94); MONOCYTES # (AUTO) 0.8 K/uL (0.8-1.0); MONOCYTES % (AUTO) 10.5 % (1.7-9.3); NEUTROPHILS # (AUTO) 4.7 K/uL (1.8-7.7); PLATELET COUNT (AUTO) 379 K/uL (140-450); RED BLOOD CELL COUNT(AUTO) 4.65 MIL/uL (4.20-5.40); RED CELL DISTRIBUTION WIDTH 18.9 % (11.6-13.7); WHITE BLOOD COUNT (AUTO) 7.5 K/uL (4.8-10.8)
[2021-05-22 18:07] LABS: ALBUMIN 4.2 g/dL (3.4-5.0); ANION GAP 19.2 (8-16); CARBON DIOXIDE 17.1 mmol/L (21-32); CREATININE 0.6 mg/dL (0.6-1.3); POTASSIUM 3.3 mmol/L (3.5-5.1); TOTAL BILIRUBIN 0.9 mg/dL (0.0-1.0)
--- NOTE | 2021-05-22 18:45 | NUR ---
PT ALERT AND AWAKE, BREATHING EVEN AND UNLABORED. NO DISTRESS NOTED. ALL NEEDS MET AT THIS TIME
[2021-05-22] MEDS ORDERED: NACL 0.9% 2,000 ML IV ONE (18:55)
[2021-05-22] MEDS ORDERED: PROCHLORPERAZINE 10 MG/2 ML VIAL IVP ONE (18:55)
[2021-05-22] MEDS ORDERED: KETOROLAC 30 MG/ML VIAL IVP ONE (18:55)
[2021-05-22] MEDS ORDERED: ONDANSETRON 4 MG/2 ML VIAL IVP ONE (18:55)
--- NOTE | 2021-05-22 19:14 | NUR ---
REPORT GIVEN TO PABLO RN, TRANSFER OF CARE AT THIS TIME
--- NOTE | 2021-05-22 20:26 | NUR ---
Patient does not wish to proceed with medical care recommended by DR. MEJÍA. Patient given information related to possible complications, up to and including , which could occur as a result of leaving hospital at this time. Patient verbalizes understanding of risks involved leaving against medical advice. Patient has signed AMA form.
[2021-05-22] MEDS ORDERED: PROC-66 PO (20:27)
[2021-05-22] MEDS ORDERED: ONDA-24 SL (20:27)
[2021-05-22 22:00] LABS: APPEARANCE,URINE CLEAR (CLEAR); BILIRUBIN,URINE NEGATIVE (NEGATIVE); BLOOD, URINE 1+ (NEGATIVE); COLOR,URINE YELLOW (YELLOW); LEUKOCYTE ESTERASE ,URINE NEGATIVE (NEGATIVE); NITRITE, URINE NEGATIVE (NEGATIVE); UGLUCOSE NEGATIVE (NEGATIVE)
[2021-05-22 22:27] LABS: RBC,URINE 0-5 /HPF (0-5); WBC,URINE 0-5 /HPF (0-5)
[2021-05-22 22:28] LABS: YEAST,URINE Few /HPF (None Seen)
--- NOTE | 2021-05-24 23:10 | NUR ---
LATE ENTRY- 0.9% NS IVF DISCONTINUED AT 2024
== END 2021-05-22 20:26 | disposition left against medical advice (07) ==
LOC: MED 16:18
DX: R11.2 Nausea with vomiting, unspecified (principal); R10.84 Generalized abdominal pain; R19.7 Diarrhea, unspecified; F12.90 Cannabis use, unspecified, uncomplicated; Z79.899 Other long term (current) drug therapy
CPT/HCPCS: 36415; 80053; 81001; 81025; 83690; 84703; 85025; 87086; 96361; 96374; 96375; 99284; J0780; J1885; J2405; J7030

== ENCOUNTER 2021-06-09 21:40 | Emergency (ER) | payer OTHER ==
[~2021-06-09] VITALS: Ht 149.9 cm; Wt 43.5 kg
[~2021-06-09 21:40] MED LIST changes: -ACET-1195 PO; -ONDA-24 PO; +ONDA-24 SL; -PREN-385 PO; +PROC-66 PO
[2021-06-09 22:30] VITALS: BP 138/79
--- NOTE | 2021-06-09 22:34 | NUR ---
TO LOBBY A/W BED AMBULATORY
--- NOTE | 2021-06-10 01:26 | NUR ---
PT TO BED 11
--- NOTE | 2021-06-10 01:40 | NUR ---
30 YO F BIB SELF FOR N/V X 1 DAY. PT HAS 300 ML EMESIS NOTED, DARK GREEN. DENIES ABD PAIN DENIES FEVER CHILLS. AMB @ BEDSIDE. AX: RICARDO
[2021-06-10] MEDS ORDERED: HALOPERIDOL IM 5 MG/ML VIAL IVP ONE (02:05)
[2021-06-10] MEDS ORDERED: diphenhydrAMINE 50 MG/ML VIAL IVP ONE (02:05)
[2021-06-10] MEDS ORDERED: ONDANSETRON 4 MG/2 ML VIAL IVP ONE (02:05)
[2021-06-10] MEDS ORDERED: NACL 0.9% 1,000 ML IV ONE (02:05)
[2021-06-10 02:17] LABS: BASOPHILS # (AUTO) 0.1 K/uL (0.00-0.22); BASOPHILS % (AUTO) 0.4 % (0.0-2.0); HEMATOCRIT 32.4 % (36-48); HEMOGLOBIN 10.2 g/dL (12.0-16.0); LYMPHOCYTES # (AUTO) 0.4 K/uL (2.5-16.5); LYMPHOCYTES % (AUTO) 3.5 % (20.5-51.1); MEAN CORPUSCULAR HEMOGLOBIN 21 pg (27-31); MEAN CORPUSCULAR HGB CONC 31 g/dL (33-37); MEAN CORPUSCULAR VOLUME 66.4 fL (80-94); MONOCYTES # (AUTO) 0.4 K/uL (0.8-1.0); MONOCYTES % (AUTO) 3.3 % (1.7-9.3); NEUTROPHILS % (AUTO) 92.8 % (42.2-75.2); PLATELET COUNT (AUTO) 412 K/uL (140-450); RED BLOOD CELL COUNT(AUTO) 4.88 MIL/uL (4.20-5.40); RED CELL DISTRIBUTION WIDTH 19.3 % (11.6-13.7); WHITE BLOOD COUNT (AUTO) 12.9 K/uL (4.8-10.8)
[2021-06-10 02:25] LABS: CARBON DIOXIDE 20.5 mmol/L (21-32); CREATININE 0.9 mg/dL (0.6-1.3); POTASSIUM 3.5 mmol/L (3.5-5.1)
--- NOTE | 2021-06-10 02:45 | NUR ---
NEW PIV 18 G L AC STARTED; CONVERTED TO SL. IV BOLUS STARTED WILL CONTINUE TO OBSERVE.
--- NOTE | 2021-06-10 03:25 | NUR ---
PT HAS EYES CLOSED; DENIES PAIN, NO N/V @ THIS TIME. DENIES PAIN. WILL CONTINUE TO OBSERVE.
[2021-06-10] MEDS ORDERED: PHE25S RC (03:58)
[2021-06-10 04:45] VITALS: BP 120/71
--- NOTE | 2021-06-10 04:45 | NUR ---
Patient discharged with v/s stable. Written and verbal after care instructions given and explained. Patient alert, oriented and verbalized understanding of instructions. Ambulatory with steady gait. All questions addressed prior to discharge. ID band removed. Patient advised to follow up with PMD. Rx of PHENERGAN HI given. Patient educated on indication of medication including possible reaction and side effects. Opportunity to ask questions provided and answered.
== END 2021-06-10 04:45 | disposition home or self-care (01) ==
LOC: MED 21:40
DX: R11.15 Cyclical vomiting syndrome unrelated to migraine (principal); R10.13 Epigastric pain; Z79.899 Other long term (current) drug therapy
CPT/HCPCS: 36415; 80048; 84703; 85025; 96361; 96374; 96375; 99284; J1200; J1630; J2405; J7030

== ENCOUNTER 2021-06-13 12:55 | Emergency (ER) | payer OTHER ==
[~2021-06-13] VITALS: Ht 149.9 cm; Wt 43.5 kg
[~2021-06-13 12:55] MED LIST changes: +PHE25S RC
[2021-06-13 13:13] VITALS: BP 135/98
--- NOTE | 2021-06-13 13:17 | NUR ---
PT SENT TO LOBBY
[2021-06-13 13:48] LABS: BASOPHILS # (AUTO) 0.1 K/uL (0.00-0.22); BASOPHILS % (AUTO) 0.8 % (0.0-2.0); EOSINOPHILS % (AUTO) 0.4 % (0.0-4.0); HEMATOCRIT 34.3 % (36-48); HEMOGLOBIN 10.8 g/dL (12.0-16.0); LYMPHOCYTES # (AUTO) 1.9 K/uL (2.5-16.5); LYMPHOCYTES % (AUTO) 19.7 % (20.5-51.1); MEAN CORPUSCULAR HEMOGLOBIN 21 pg (27-31); MEAN CORPUSCULAR HGB CONC 32 g/dL (33-37); MEAN CORPUSCULAR VOLUME 67.5 fL (80-94); MONOCYTES # (AUTO) 0.9 K/uL (0.8-1.0); MONOCYTES % (AUTO) 9.7 % (1.7-9.3); NEUTROPHILS # (AUTO) 6.6 K/uL (1.8-7.7); NEUTROPHILS % (AUTO) 69.4 % (42.2-75.2); PLATELET COUNT (AUTO) 403 K/uL (140-450); RED BLOOD CELL COUNT(AUTO) 5.09 MIL/uL (4.20-5.40); RED CELL DISTRIBUTION WIDTH 19.7 % (11.6-13.7); WHITE BLOOD COUNT (AUTO) 9.5 K/uL (4.8-10.8)
[2021-06-13 14:08] LABS: ALBUMIN 4.7 g/dL (3.4-5.0); ANION GAP 19.5 (8-16); CARBON DIOXIDE 17.8 mmol/L (21-32); CREATININE 0.8 mg/dL (0.6-1.3); POTASSIUM 3.3 mmol/L (3.5-5.1); TOTAL BILIRUBIN 0.9 mg/dL (0.0-1.0)
[2021-06-13] MEDS ORDERED: DICYCLOMINE 10 MG CAP PO ONE (14:30)
[2021-06-13] MEDS ORDERED: HALOPERIDOL IM 5 MG/ML VIAL IM ONE (14:30)
[2021-06-13] MEDS ORDERED: HALOPERIDOL IM 5 MG/ML VIAL ONE (16:37)
[2021-06-13] MEDS ORDERED: DICYCLOMINE 10 MG CAP ONE (16:38)
--- NOTE | 2021-06-13 16:38 | NUR ---
PT TAKEN TO CHAIR C
--- NOTE | 2021-06-13 16:40 | NUR ---
30 Y/O FEMALE BIB C/O LOWER ABDOMINAL PAIN X1 WEEK. STATES MULTIPLE EPISODES OF VOMITING, DENIES DIARRHEA, CP, SOB. DENIES ALCOHOL OR DRUG USE. PT WAS SEEN HERE 06/09 WITH SAME COMPLAINT. PT STATES HE HAS APPT WITH GI DOCTOR FOR SURGERY ON SUNDAY. WHEN ASKED WHAT TYPE OF SURGERY OR WHAT HER DIAGOSIS IS, SHE STATED "I DONT KNOW". PT RATES PAIN /. WHEN ASKED TO DESCRIBE PAIN, SHE STATES "I CANT EXPLAIN". PT A/O X4 WITH EVEN AND UNLABORED RESPIRATIONS. PT GIVEN EMESIS BAG. MEDHX: DENIES ALLERGIES: DENIES
--- NOTE | 2021-06-13 17:09 | NUR ---
PT REQUESTING FOR US TO CALL HER DR, DAMARIS VILLAREAL. ATTEMPTED TO CALL , NO ANSWER. PT MADE AWARE
--- NOTE | 2021-06-13 17:15 | NUR ---
PT REQUESTING TO LEAVE. DR LAZO MADE AWARE
[2021-06-13 17:20] VITALS: BP 119/66
--- NOTE | 2021-06-13 17:20 | NUR ---
Patient discharged with v/s stable. Written and verbal after care instructions ABOUT NAUSEA AND VOMITING given and explained. Patient verbalized understanding. Ambulatory with steady gait. All questions addressed prior to discharge. Advised to follow up with PMD.
== END 2021-06-13 17:20 | disposition home or self-care (01) ==
LOC: MED 12:55
DX: R11.2 Nausea with vomiting, unspecified (principal); R10.84 Generalized abdominal pain; F12.90 Cannabis use, unspecified, uncomplicated; Z79.899 Other long term (current) drug therapy
CPT/HCPCS: 36415; 80053; 81002; 81025; 83690; 85025; 96372; 99283; J1630

== ENCOUNTER 2021-06-17 10:36 | Day surgery (SDC) | payer OTHER ==
[~2021-06-17] VITALS: Ht 149.9 cm; Wt 43.1 kg
--- NOTE | 2021-06-17 12:51 | NUR ---
RD RECOMMENDATIONS: 1. JEVITY 1.2- 5 CANS PER DAY; 1 CAN IN MORNING, 2 CANS AFTERNOON, AND 2 CANS IN THE EVENING -THIS WILL PROVIDE 1180 ML OF VOLUME, 1425 KCAL/DAY AND 66 GM PROTEIN/DAY, THIS MEETS 100% OF KCAL AND PROTEIN NEEDS/DAY 2. FREE WATER FLUSH OF 60 ML BEFORE AND AFTER -THIS WILL PROVIDE A TOTAL OF 36O ML OF FREE WATER/DAY
[2021-06-17] MEDS ORDERED: MIDAZOLAM 5 MG/5 ML VIAL ONE (14:50)
[2021-06-17] MEDS ORDERED: fentaNYL citrate 0.05 MG/ML VIAL ONE (14:50)
[2021-06-17] MEDS ORDERED: MIDAZOLAM 2 MG/2 ML VIAL IVP ONE (15:40)
[2021-06-17] MEDS ORDERED: fentaNYL citrate 0.05 MG/ML VIAL IVP ONE (15:40)
[2021-06-18] MEDS ORDERED: FERR325E14 PO (16:34)
[2021-06-18] MEDS ORDERED: POTA10TE30 PO (16:34)
== END 2021-06-17 16:45 | disposition home or self-care (01) ==
LOC: MDS 10:36 → MFCC 10:37 → MDS 16:45
PROVIDERS: ATTEND Internal Medicine Gastroenterology
DX: G43.A1 Cyclical vomiting, in migraine, intractable (principal); Z79.899 Other long term (current) drug therapy
CPT/HCPCS: 43246; 81025; J0690; J2250; J3010; J7030; J7060

== ENCOUNTER 2021-06-18 13:27 | Emergency (ER) | payer OTHER ==
[~2021-06-18] VITALS: Ht 149.9 cm; Wt 43.5 kg
[2021-06-18 13:30] VITALS: BP 163/93
--- NOTE | 2021-06-18 13:40 | NUR ---
PT W/C ASSISTED TO BED
[2021-06-18] MEDS ORDERED: NACL 0.9% 1,000 ML IV ONE (13:45)
[2021-06-18] MEDS ORDERED: diphenhydrAMINE 50 MG/ML VIAL IVP ONE (13:45)
[2021-06-18] MEDS ORDERED: HALOPERIDOL IM 5 MG/ML VIAL IVP ONE (13:45)
--- NOTE | 2021-06-18 13:51 | NUR ---
30 Y/O FEMALE C/O ABD PAIN 07/10 PAIN DESCRIBES SHARP GENERALIZED X1DAY. PT STATES SHE HAD GTUBE PLACED YESTERDAY HERE AND D/C'D AT 1600. STATES +N/V, DENIES FEVER/CHILLS. ABD IS SOFT, ROUND, TENDER TO PALPATION WITH GTUBE IN PLACE. PMH: GTUBE, MARIJUANA, RECREATIONAL DRUGS NKA
--- NOTE | 2021-06-18 13:52 | NUR ---
IV ESTABLISHED TO LEFT AC, GOOD BLOOD RETURN, BLOOD COLLECTED. WALKED TO LAB PER MD ORDER.
[2021-06-18] MEDS ORDERED: MORPHINE SULFATE 4 MG/ML SYR IVP ONE (14:05)
[2021-06-18] MEDS ORDERED: MORPHINE SULFATE 4 MG/ML SYR ONE (14:05)
--- NOTE | 2021-06-18 14:14 | NUR ---
PT STATES SHE IS UNABLE TO PROVIDE UA AT THIS TIME. MADE AWARE.
--- NOTE | 2021-06-18 14:34 | NUR ---
PER DR. MÁRQUEZ UA NOT REQUIRED AT THIS TIME.
--- NOTE | 2021-06-18 14:47 | NUR ---
PASTRY WRAPPER AT PT BEDSIDE FOR VERIFICATION OF GTUBE WITH CONTRAST.
[2021-06-18 14:50] LABS: ALBUMIN 4.1 g/dL (3.4-5.0); ANION GAP 16.8 (8-16); CARBON DIOXIDE 20.5 mmol/L (21-32); CREATININE 0.6 mg/dL (0.6-1.3); POTASSIUM 3.3 mmol/L (3.5-5.1); TOTAL BILIRUBIN 0.5 mg/dL (0.0-1.0)
--- NOTE | 2021-06-18 14:50 | NUR ---
AT PT BEDSIDE TO INJECT CONTRAST PRIOR TO XR. MEDICAL MASSAGE THERAPIST AT PT BEDSIDE.
[2021-06-18 15:34] LABS: BASOPHILS # (AUTO) 0.1 K/uL (0.00-0.22); BASOPHILS % (AUTO) 0.5 % (0.0-2.0); EOSINOPHILS % (AUTO) 0.1 % (0.0-4.0); HEMATOCRIT 26.4 % (36-48); HEMOGLOBIN 8.2 g/dL (12.0-16.0); LYMPHOCYTES # (AUTO) 0.4 K/uL (2.5-16.5); LYMPHOCYTES % (AUTO) 3.4 % (20.5-51.1); MEAN CORPUSCULAR HEMOGLOBIN 21 pg (27-31); MEAN CORPUSCULAR HGB CONC 31 g/dL (33-37); MEAN CORPUSCULAR VOLUME 67.3 fL (80-94); MONOCYTES # (AUTO) 0.3 K/uL (0.8-1.0); MONOCYTES % (AUTO) 2.3 % (1.7-9.3); NEUTROPHILS # (AUTO) 10.9 K/uL (1.8-7.7); NEUTROPHILS % (AUTO) 93.7 % (42.2-75.2); PLATELET COUNT (AUTO) 309 K/uL (140-450); RED BLOOD CELL COUNT(AUTO) 3.93 MIL/uL (4.20-5.40); RED CELL DISTRIBUTION WIDTH 19.9 % (11.6-13.7); WHITE BLOOD COUNT (AUTO) 11.6 K/uL (4.8-10.8)
--- NOTE | 2021-06-18 15:37 | NUR ---
DR. MÁRQUEZ AT PT BEDSIDE FOR RE-EVALUATION.
--- NOTE | 2021-06-18 16:17 | NUR ---
PT SLEEPING, VISIBLE EQUAL RISE AND FALL OF CHEST, VSS, WILL CONTINUE TO MONITOR.
[2021-06-18] MEDS ORDERED: POTA10TE30 PO (16:34)
[2021-06-18] MEDS ORDERED: FERR325E14 PO (16:34)
[2021-06-18 16:46] VITALS: BP 113/67
--- NOTE | 2021-06-18 16:46 | NUR ---
Patient discharged with v/s stable. Written and verbal after care instructions given ANEMIA, HYPOKALEMIA, AND CYCLIC VOMITING SYNDROME and explained. Patient alert, oriented and verbalized understanding of instructions. Ambulatory with steady gait. All questions addressed prior to discharge. ID band removed. Patient advised to follow up with PMD. Rx of FERROUS SULFATE 325MG PO DAILY FOR ANEMIA, AND POTASSIUM CHLORIDE 10MEQ PO DAILY FOR HYPOKALEMIA given. Patient educated on indication of medication including possible reaction and side effects. Opportunity to ask questions provided and answered.
== END 2021-06-18 16:46 | disposition home or self-care (01) ==
LOC: MED 13:27
DX: E87.6 Hypokalemia (principal); D64.9 Anemia, unspecified; R11.2 Nausea with vomiting, unspecified; R10.9 Unspecified abdominal pain
CPT/HCPCS: 36415; 74240; 80053; 83690; 85025; 96361; 96374; 96375; 99285; J1200; J1630; J2270; J7030; Q0092

== ENCOUNTER 2021-06-22 14:34 | Emergency (ER) | payer OTHER ==
[~2021-06-22] VITALS: Ht 149.9 cm; Wt 46.7 kg
[~2021-06-22 14:34] MED LIST changes: +FERR325E14 PO; +POTA10TE30 PO
[2021-06-22 14:39] VITALS: BP 144/55
[2021-06-22] MEDS ORDERED: HALOPERIDOL IM 5 MG/ML VIAL IVP ONE ×2 (15:00→16:20)
[2021-06-22] MEDS ORDERED: NACL 0.9% 1,000 ML IV ONE (15:00)
[2021-06-22 15:18] LABS: BASOPHILS # (AUTO) 0.1 K/uL (0.00-0.22); BASOPHILS % (AUTO) 0.4 % (0.0-2.0); EOSINOPHILS # (AUTO) 0.1 K/uL (0-0.4); EOSINOPHILS % (AUTO) 0.6 % (0.0-4.0); HEMATOCRIT 31.7 % (36-48); LYMPHOCYTES % (AUTO) 7.2 % (20.5-51.1); MEAN CORPUSCULAR HEMOGLOBIN 21 pg (27-31); MEAN CORPUSCULAR HGB CONC 32 g/dL (33-37); MEAN CORPUSCULAR VOLUME 67.3 fL (80-94); MONOCYTES # (AUTO) 0.4 K/uL (0.8-1.0); MONOCYTES % (AUTO) 3.3 % (1.7-9.3); NEUTROPHILS # (AUTO) 11.9 K/uL (1.8-7.7); NEUTROPHILS % (AUTO) 88.5 % (42.2-75.2); PLATELET COUNT (AUTO) 529 K/uL (140-450); RED BLOOD CELL COUNT(AUTO) 4.72 MIL/uL (4.20-5.40); RED CELL DISTRIBUTION WIDTH 20.2 % (11.6-13.7); WHITE BLOOD COUNT (AUTO) 13.4 K/uL (4.8-10.8)
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
[2021-06-22 15:33] LABS: ALBUMIN 4.2 g/dL (3.4-5.0); ANION GAP 18.6 (8-16); CARBON DIOXIDE 19.9 mmol/L (21-32); CREATININE 0.7 mg/dL (0.6-1.3); MAGNESIUM 1.8 mg/dL (1.8-2.4); POTASSIUM 3.5 mmol/L (3.5-5.1); TOTAL BILIRUBIN 0.4 mg/dL (0.0-1.0)
--- NOTE | 2021-06-22 16:30 | NUR ---
PATIENT REFUSING ORDERED HALDOL, REQUESTING TO GO HOME. DR. TEMPLETON MADE AWARE.
[2021-06-22 16:39] VITALS: BP 133/74
== END 2021-06-22 16:39 | disposition home or self-care (01) ==
LOC: MED 14:34
DX: R11.10 Vomiting, unspecified (principal); E86.0 Dehydration; G89.29 Other chronic pain; R10.9 Unspecified abdominal pain; F12.90 Cannabis use, unspecified, uncomplicated; Z98.890 Other specified postprocedural states; Z79.899 Other long term (current) drug therapy
CPT/HCPCS: 36415; 80053; 83690; 83735; 84703; 85025; 96361; 96374; 99283; J1630; J7030

== ENCOUNTER 2021-09-03 00:37 | Emergency (ER) | payer OTHER ==
[~2021-09-03] VITALS: Ht 149.9 cm; Wt 43.5 kg
[~2021-09-03 00:37] MED LIST changes: +ONDA-188 SL; -ONDA-24 SL; +POTA10TA70 PO; -POTA10TE30 PO
[2021-09-03 00:42] VITALS: BP 140/104
--- NOTE | 2021-09-03 01:02 | NUR ---
LABS BEING DRAWN
[2021-09-03] MEDS ORDERED: HALOPERIDOL IM 5 MG/ML VIAL IVP ONE (01:05)
[2021-09-03] MEDS ORDERED: NACL 0.9% 1,000 ML IV ONE ×2 (01:05→03:00)
[2021-09-03 01:17] LABS: HEMATOCRIT 34.3 % (36-48); HEMOGLOBIN 11.1 g/dL (12.0-16.0); MEAN CORPUSCULAR HEMOGLOBIN 22 pg (27-31); MEAN CORPUSCULAR HGB CONC 32 g/dL (33-37); MEAN CORPUSCULAR VOLUME 68.2 fL (80-94); PLATELET COUNT (AUTO) 423 K/uL (140-450); RED BLOOD CELL COUNT(AUTO) 5.03 MIL/uL (4.20-5.40); RED CELL DISTRIBUTION WIDTH 20.6 % (11.6-13.7); WHITE BLOOD COUNT (AUTO) 11.4 K/uL (4.8-10.8)
[2021-09-03 01:32] LABS: ANION GAP 21.5 (8-16); CARBON DIOXIDE 22.7 mmol/L (21-32); CREATININE 1.1 mg/dL (0.6-1.3); POTASSIUM 3.2 mmol/L (3.5-5.1)
[2021-09-03 01:39] LABS: ALBUMIN 4.8 g/dL (3.4-5.0); BILIRUBIN,DIRECT 0.1 mg/dL (0.0-0.3); TOTAL BILIRUBIN 0.6 mg/dL (0.0-1.0)
[2021-09-03 01:42] LABS: LYMPHOCYTES % (MANUAL) 7 % (20-46); MONOCYTES % (MANUAL) 5 % (5-12)
--- NOTE | 2021-09-03 02:19 | NUR ---
pt ambulated to bed 10.
[2021-09-03] MEDS ORDERED: HALOPERIDOL IM 5 MG/ML VIAL ONE (02:24)
[2021-09-03] MEDS ORDERED: LORazepam 2 MG/ML VIAL IVP ONE (02:45)
[2021-09-03] MEDS ORDERED: LACTATED RINGERS 1,000 ML IV ONE ×2 (05:15)
[2021-09-03] MEDS ORDERED: ONDA4TAB PO (06:57)
[2021-09-03] MEDS ORDERED: FAMO-92 GT (06:57)
[2021-09-03 07:07] VITALS: BP 111/61
--- NOTE | 2021-09-03 07:07 | NUR ---
PATIENT CLEARED FOR DISCHARGE AT THIS TIME. PATIENT HAS NO FURTHER COMPLAINTS OR CONCERNS AND WISHES TO BE DISCHARGED. ADVISED TO FOLLOW UP WITH GASTRO AND PCP AND RETURN IF CONDITION WORSENS.
== END 2021-09-03 07:11 | disposition home or self-care (01) ==
LOC: MED 00:37
DX: R07.9 Chest pain, unspecified (principal)
CPT/HCPCS: 36415; 71045; 74176; 80048; 80076; 81025; 83605; 83690; 85025; 96361; 96374; 96375; 99285; J1630; J2060; J7030

== ENCOUNTER 2021-09-06 11:16 | Emergency (ER) | payer OTHER ==
[~2021-09-06] VITALS: Ht 149.9 cm; Wt 48.1 kg
[~2021-09-06 11:16] MED LIST changes: +FAMO-92 GT; +ONDA4TAB PO
[2021-09-06 11:24] VITALS: BP 121/92
--- NOTE | 2021-09-06 12:16 | NUR ---
PT AMBULATED TO BED 12 WITH ASSISTANCE
--- NOTE | 2021-09-06 12:19 | NUR ---
Pt states she is unable to pee at this time.
--- NOTE | 2021-09-06 12:25 | NUR ---
30 y/o F BIB family c/o N/V/D + abdominal pain. Patient A&Ox4, ambulatory, reports genrealized abdominal pain for 2 days wit hassociated N/V/D. Pt states vomiting >10 episodes and diarrhea x 2 episodes today. Pt states pain 10/10, sharp/cramping/constant, non-radiating. Denies medications prior to arival. Denies fever, chills, chest pain, dysuria, back pain. Last BM: today/diarrhae. LMP: 4 days ago. Bed locked in lowest position, side rails x 1, call light in reach. Pt with G-tube in place. PMH/Sx/Meds: C-sections, cholecystectomy, G-tube NKDA
--- NOTE | 2021-09-06 12:30 | NUR ---
Lab at bedside for blood draw
[2021-09-06 12:45] LABS: BASOPHILS % (AUTO) 0.3 % (0.0-2.0); HEMATOCRIT 31.8 % (36-48); HEMOGLOBIN 10.3 g/dL (12.0-16.0); LYMPHOCYTES # (AUTO) 0.7 K/uL (2.5-16.5); LYMPHOCYTES % (AUTO) 10.2 % (20.5-51.1); MEAN CORPUSCULAR HEMOGLOBIN 22 pg (27-31); MEAN CORPUSCULAR HGB CONC 32 g/dL (33-37); MEAN CORPUSCULAR VOLUME 68.8 fL (80-94); MONOCYTES # (AUTO) 0.6 K/uL (0.8-1.0); MONOCYTES % (AUTO) 8.1 % (1.7-9.3); NEUTROPHILS # (AUTO) 5.9 K/uL (1.8-7.7); NEUTROPHILS % (AUTO) 81.4 % (42.2-75.2); PLATELET COUNT (AUTO) 357 K/uL (140-450); RED BLOOD CELL COUNT(AUTO) 4.63 MIL/uL (4.20-5.40); RED CELL DISTRIBUTION WIDTH 20.7 % (11.6-13.7); WHITE BLOOD COUNT (AUTO) 7.2 K/uL (4.8-10.8)
[2021-09-06] MEDS ORDERED: NACL 0.9% 1,000 ML IV ONE (12:45)
[2021-09-06] MEDS ORDERED: ONDANSETRON 4 MG/2 ML VIAL IVP ONE (12:45)
[2021-09-06] MEDS ORDERED: HALOPERIDOL 5 MG TAB PO ONE (12:45)
[2021-09-06 13:22] LABS: ALBUMIN 4.2 g/dL (3.4-5.0); ANION GAP 19.8 (8-16); CARBON DIOXIDE 20.7 mmol/L (21-32); CREATININE 0.8 mg/dL (0.6-1.3); POTASSIUM 3.5 mmol/L (3.5-5.1); TOTAL BILIRUBIN 0.4 mg/dL (0.0-1.0)
[2021-09-06] MEDS ORDERED: ONDANSETRON 4 MG/2 ML VIAL ONE (13:47)
[2021-09-06 14:07] LABS: APPEARANCE,URINE CLOUDY (CLEAR); BILIRUBIN,URINE 1+ (NEGATIVE); BLOOD, URINE TRACE-I (NEGATIVE); COLOR,URINE YELLOW (YELLOW); LEUKOCYTE ESTERASE ,URINE NEGATIVE (NEGATIVE); NITRITE, URINE NEGATIVE (NEGATIVE); UGLUCOSE NEGATIVE (NEGATIVE)
[2021-09-06 15:00] VITALS: BP 117/87
== END 2021-09-06 15:13 | disposition home or self-care (01) ==
LOC: MED 11:16
DX: R11.15 Cyclical vomiting syndrome unrelated to migraine (principal); F41.9 Anxiety disorder, unspecified; Z98.890 Other specified postprocedural states; Z79.899 Other long term (current) drug therapy
CPT/HCPCS: 36415; 80053; 81003; 81025; 83690; 85025; 96361; 96374; 99283; J1630; J2405; J7030

== ENCOUNTER 2021-10-23 12:24 | Emergency (ER) | payer OTHER ==
--- NOTE | 2021-10-23 14:19 | NUR ---
ATTEMPTED TO CALL PATIENT AND NO ANSWER AT THIS TIME
--- NOTE | 2021-10-23 14:29 | NUR ---
ATTEMPTED TO CALL PATIENT AND NO ANSWER AT THIS TIME
--- NOTE | 2021-10-23 14:39 | NUR ---
ATTEMPTED TO CALL PATIENT AND NO ANSWER AT THIS TIME - THIRD TRY MD MADE AWARE.
== END 2021-10-23 14:19 | disposition left against medical advice (07) ==
LOC: MED 12:24
DX: Z53.21 Procedure and treatment not carried out due to patient leaving prior to being seen by health care provider (principal)

== ENCOUNTER 2021-10-23 19:05 | Emergency (ER) | payer OTHER ==
[~2021-10-23] VITALS: Ht 149.9 cm; Wt 48.1 kg
[2021-10-23 19:13] VITALS: BP 116/75
[2021-10-23] MEDS ORDERED: NACL 0.9% 1,000 ML IV ONE (19:20)
[2021-10-23] MEDS ORDERED: KETOROLAC 30 MG/ML VIAL IVP ONE (19:20)
[2021-10-23] MEDS ORDERED: ONDANSETRON 4 MG/2 ML VIAL IVP ONE (19:20)
--- NOTE | 2021-10-23 19:21 | NUR ---
HANDED ON URINE CUP.
--- NOTE | 2021-10-23 19:39 | NUR ---
PATIENT ELOPED FROM FACILITY. DISCHARGE INSTRUCTIONS NOT GIVEN TO PATIENT. DR. FREDERICK NOTIFIED.
== END 2021-10-23 19:39 | disposition left against medical advice (07) ==
LOC: MED 19:05
DX: R11.2 Nausea with vomiting, unspecified (principal); Z53.21 Procedure and treatment not carried out due to patient leaving prior to being seen by health care provider

== ENCOUNTER 2021-11-01 18:27 | Emergency (ER) | payer OTHER ==
[~2021-11-01] VITALS: Ht 149.9 cm; Wt 48.1 kg
[2021-11-01 18:38] VITALS: BP 117/73
--- NOTE | 2021-11-01 18:41 | NUR ---
PT AMB TO BED 12
--- NOTE | 2021-11-01 19:06 | NUR ---
BEDSIDE EVALUATING PT
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
--- NOTE | 2021-11-01 19:18 | NUR ---
PT PROVIDED WITH WATER BEDSIDE
--- NOTE | 2021-11-01 19:23 | NUR ---
Pt report given to NICK YEPEZ. Transfer of care at this time.
[2021-11-01 19:36] VITALS: BP 106/56
--- NOTE | 2021-11-01 19:36 | NUR ---
Patient discharged with v/s stable. Written and verbal after care instructions given and explained. Patient verbalized understanding. Ambulatory with steady gait. ID band removed. Gave work note to patient. All questions addressed prior to discharge. Advised to follow up with PMD.
== END 2021-11-01 19:36 | disposition home or self-care (01) ==
LOC: MED 18:27
DX: M54.2 Cervicalgia (principal); M25.511 Pain in right shoulder; M25.561 Pain in right knee; V98.8XXA Other specified transport accidents, initial encounter; Y93.89 Activity, other specified; Y92.89 Other specified places as the place of occurrence of the external cause; Y99.8 Other external cause status
CPT/HCPCS: 99281

== ENCOUNTER 2022-02-17 07:37 | Emergency (ER) | payer OTHER ==
--- NOTE | 2022-02-17 07:40 | NUR ---
PT CALLED IN LOBBY FOR TRIAGE, NO ANSWER. ERMD MADE AWARE.
--- NOTE | 2022-02-17 07:40 | NUR ---
Note bony in [facility] - 02/17/22 at 0757 by [email or web address] PT CALLED IN LOBBY FOR TIRAGE, NO ANSWER. HUSSEIN MADE AWARE.
--- NOTE | 2022-02-17 07:48 | NUR ---
PT CALLED IN LOBBY FOR TRIAGE SECOND TIME, NO ANSWER. ERMD MADE AWARE.
--- NOTE | 2022-02-17 07:58 | NUR ---
PT CALLED IN LOBBY FOR TRIAGE FOR THIRD TIME, NO ANSWER. ERMD MADE AWARE.
--- NOTE | 2022-02-17 07:58 | NUR ---
PT LWBS, ERMD MADE AWARE AT THIS TIME.
== END 2022-02-17 07:40 | disposition left against medical advice (07) ==
LOC: MED 07:37
DX: R11.0 Nausea (principal); Z53.21 Procedure and treatment not carried out due to patient leaving prior to being seen by health care provider